=== PATIENT | female | born 1980 | race Caucasian/White ===

== ENCOUNTER 2016-10-08 19:36 | Emergency (ER) | payer SELFPAY ==
[2016-10-08 19:42] VITALS: BP 164/82
[2016-10-08] MEDS ORDERED: Take Home: Acetaminophen/Codeine 300 MG/30 MG, 5 Tab Pack PO ONE (20:29)
--- NOTE | 2016-10-12 08:14 | ER ---
Date of Service: 10/08/2016 SUBJECTIVE: Nancy presents to the emergency room with complaints of pain to her right calf. 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 She states that the pain was minimal at that time and states that the discomfort has gotten progressively worse throughout the day. She states that she did take some ibuprofen and her gave her some Soma for the discomfort. She states that she has taken approximately 3 of the Soma tablets and is experiencing severe weakness and fatigue after taking this medication. To note, the ibuprofen that she was taking also contained Benadryl. PAST MEDICAL HISTORY: None. MEDICATIONS: Junel. ALLERGIES: NKDA. REVIEW OF SYSTEMS: Denies any numbness or tingling in the right lower extremity. She is able to bear weight; however, with increased discomfort. Denies any ecchymosis or significant edema or "balling up" of the muscles of the calf. Denies any pain to the area of the Achilles tendon. PHYSICAL EXAMINATION: General: This is a 36-year-old female patient, who is in no acute distress. Vital Signs: Blood pressure is 164/82, heart rate is 108, temperature is 36.6, respiratory rate is 18, and O2 saturations 100%. Skin: Warm, pink, and dry. Musculoskeletal: She does have tenderness on lateral squeeze of the right calf. The right calf is mildly increased in size. No ecchymosis noted. No significant difference in appearance compared to the left calf. She is able to plantar and dorsiflex her foot without difficulty. No foot drop noted. ASSESSMENT: Right calf pain, likely secondary to gastrocnemius strain. PLAN: The patient will be discharged. I did order an ultrasound of the right calf on Wednesday. We also did get an order for physical therapy for the patient to start as soon as possible as well. Advised the ice massage of the right calf. She was given a short course of tramadol 5 mg tablets with instruction to take 1 every 6 hours as needed for pain if the ibuprofen is not helping. Advised to stop taking the Soma. Follow up in the clinic in the next 5 to 7 days. Again, Physical Therapy and Radiology will contact her regarding her appointment. ANDERSK: 10/09/2016 13:55:31 MODL: 10/09/2016 19:56:01 /[id number]
== END 2016-10-08 20:41 | disposition home or self-care (01) ==
LOC: VM.ED 19:36
DX: M79.661 Pain in right lower leg (principal); Z79.3 Long term (current) use of hormonal contraceptives
CPT/HCPCS: 99283; A9270